=== PATIENT | male | born 1965 | race African-American/Black ===

== ENCOUNTER 2017-08-16 00:45 | Inpatient (IN) | payer OTHER ==
[2017-08-16] VITALS (7 sets, daily range): BP systolic 117–152; BP diastolic 64–89
[~2017-08-16] VITALS: Ht 185.4 cm; Wt 164.0 kg
[2017-08-16 02:26] LABS: BASOPHIL % 0.1 % (0-2); PLATELET COUNT 274 x10^3mcL (130-400)
[2017-08-16 02:34] LABS: RED CELL DISTRIBUTION WIDTH 14.6 % (11.5-14.5)
[2017-08-16] MEDS ORDERED: INVOKAMET1 TAB (02:43)
[2017-08-16] MEDS ORDERED: BENAZEPRIL HYDR40 M1 PO (02:44)
[2017-08-16] MEDS ORDERED: MOT800 PO (02:44)
[2017-08-16] MEDS ORDERED: HYDROCHLOROTHIA25 MG (02:45)
[2017-08-16] MEDS ORDERED: METFORMIN HYD1000 M2 PO (02:46)
[2017-08-16] MEDS ORDERED: GABAPENTIN600 M1 PO (02:46)
[2017-08-16] MEDS ORDERED: BUPROPION HCL150 MG PO (02:46)
[2017-08-16] MEDS ORDERED: LANTUS SOLOS100 U/M1 (02:47)
[2017-08-16 02:49] LABS: CALCIUM 9.4 mg/dL (8.5-10.1); CHLORIDE SERUM 91 mmol/L (98-107); CREATININE SERUM 1.3 mg/dL (0.7-1.3); GFR1 > 60 mL/min; GLUCOSE SERUM 355 mg/dL (74-106); POTASSIUM SERUM 4.1 mmol/L (3.5-5.1); SODIUM SERUM 130 mmol/L (136-145)
[2017-08-16 02:55] LABS: ALBUMIN 2.3 g/dL (3.4-5.0); ALKALINE PHOSPHATASE 133 U/L (46-116); ALT/SGPT 36 U/L (16-63); AST/SGOT 31 U/L (15-37); BILIRUBIN TOTAL 1.8 mg/dL (0.20-1.00); TOTAL PROTEIN, SERUM 7.8 g/dL (6.4-8.2)
[2017-08-16 04:46] LABS: MAGNESIUM 1.7 mg/dL (1.8-2.4); PHOSPHOROUS 3.7 mg/dL (2.5-4.9)
[2017-08-16 04:49] LABS: T3 TOTAL 0.78 ng/mL
[2017-08-16 04:50] LABS: CHOLESTEROL/HDL RATIO 4.9
[2017-08-16 04:54] LABS: FREE T4 1.65 ng/dL (0.76-1.46); FREE THYROXINE INDEX 3.6 ug/dL (1.4-4.5)
[2017-08-16 08:02] LABS: CALCIUM 8.8 mg/dL (8.5-10.1); CARBON DIOXIDE 29.8 mmol/L (21-32); CREATININE SERUM 1.6 mg/dL (0.7-1.3); MAGNESIUM 1.8 mg/dL (1.8-2.4); POTASSIUM SERUM 4.3 mmol/L (3.5-5.1)
[2017-08-16 08:03] LABS: PLATELET COUNT 278 x10^3mcL (130-400); RED CELL DISTRIBUTION WIDTH 14.5 % (11.5-14.5)
[2017-08-16 12:47] LABS: BAND NEUTROPHIL 3 % (0-10); BASOPHIL 0 % (0-2); MONOCYTE 5 % (0-7); SEGMENTED NEUTROPHILS 85 % (37-75)
[2017-08-16 12:48] LABS: PLATELET MORPHOLOGY LARGE PLATELET SEEN; rbc morphology (normal/abnorm) ABNORMAL (NORMAL)
[2017-08-16 15:20] LABS: UA SPECIFIC GRAVITY <=1.005 (1.005-1.035); microscopic required? YES; urine erythrocyte TRACE (NEGATIVE)
[2017-08-16 15:32] LABS: AMPHETAMINE QUAL UR NONE DETECTED (NEG <=1000)
[2017-08-16 17:38] LABS: IRON 15 ug/dL (65-170); TOTAL IRON BINDING CAPACITY 133 ug/dL (250-450)
[2017-08-16 17:55] LABS: RED BLOOD CELLS 5.21 M/mm3 (4.52-5.90)
[2017-08-17 05:45] VITALS: BP 134/74
[2017-08-17 07:13] LABS: CALCIUM 9.2 mg/dL (8.5-10.1); CARBON DIOXIDE 29.4 mmol/L (21-32); CREATININE SERUM 1.6 mg/dL (0.7-1.3); MAGNESIUM 2.1 mg/dL (1.8-2.4); PHOSPHOROUS 4.3 mg/dL (2.5-4.9); POTASSIUM SERUM 3.8 mmol/L (3.5-5.1)
[2017-08-17 07:43] LABS: PLATELET COUNT 325 x10^3mcL (130-400)
[2017-08-17 07:50] VITALS: BP 119/82
[2017-08-17 08:33] LABS: BASOPHIL % 0 % (0-2); RED CELL DISTRIBUTION WIDTH 14.7 % (11.5-14.5)
[2017-08-17 12:00] VITALS: BP 136/86
[2017-08-17 17:19] VITALS: BP 136/86
[2017-08-17 17:34] VITALS: BP 125/85
[2017-08-17 21:05] VITALS: BP 136/87
[2017-08-18 06:24] VITALS: BP 155/94
[2017-08-18 06:44] LABS: BASOPHIL % 0.4 % (0-2); CALCIUM 9.1 mg/dL (8.5-10.1); CARBON DIOXIDE 28.3 mmol/L (21-32); CHLORIDE SERUM 96 mmol/L (98-107); CREATININE SERUM 1.1 mg/dL (0.7-1.3); GFR1 > 60 mL/min; GLUCOSE SERUM 156 mg/dL (74-106); PHOSPHOROUS 3.8 mg/dL (2.5-4.9); PLATELET COUNT 338 x10^3mcL (130-400); POTASSIUM SERUM 3.7 mmol/L (3.5-5.1); SODIUM SERUM 134 mmol/L (136-145)
[2017-08-18 07:07] LABS: RED CELL DISTRIBUTION WIDTH 14.7 % (11.5-14.5)
[2017-08-18 10:40] VITALS: BP 117/94
[2017-08-18 13:20] VITALS: BP 140/86
[2017-08-18 17:39] VITALS: BP 131/105
[2017-08-18 20:36] VITALS: BP 129/72
[2017-08-19 05:58] VITALS: BP 129/70
[2017-08-19 07:25] LABS: CALCIUM 8.8 mg/dL (8.5-10.1); CARBON DIOXIDE 29.9 mmol/L (21-32); CHLORIDE SERUM 98 mmol/L (98-107); CREATININE SERUM 1.2 mg/dL (0.7-1.3); GFR1 > 60 mL/min; GLUCOSE SERUM 217 mg/dL (74-106); MAGNESIUM 2.1 mg/dL (1.8-2.4); PHOSPHOROUS 3.1 mg/dL (2.5-4.9); SODIUM SERUM 137 mmol/L (136-145)
[2017-08-19 07:53] LABS: BASOPHIL % 0.4 % (0-2); PLATELET COUNT 356 x10^3mcL (130-400)
[2017-08-19 07:54] LABS: RED CELL DISTRIBUTION WIDTH 15.2 % (11.5-14.5)
[2017-08-19 07:55] LABS: rbc morphology (normal/abnorm) ABNORMAL (NORMAL)
[2017-08-19 08:51] VITALS: BP 122/76
[2017-08-19 13:19] VITALS: BP 126/82
[2017-08-19 16:36] VITALS: BP 131/70
[2017-08-19 20:22] VITALS: BP 120/77
[2017-08-20 05:30] VITALS: BP 138/94
[2017-08-20 07:10] LABS: BASOPHIL % 0.6 % (0-2); PLATELET COUNT 375 x10^3mcL (130-400)
[2017-08-20 07:13] LABS: RED CELL DISTRIBUTION WIDTH 14.9 % (11.5-14.5)
[2017-08-20 07:57] LABS: CALCIUM 8.8 mg/dL (8.5-10.1); CARBON DIOXIDE 31.8 mmol/L (21-32); CHLORIDE SERUM 101 mmol/L (98-107); GFR1 > 60 mL/min; GLUCOSE SERUM 81 mg/dL (74-106); POTASSIUM SERUM 3.4 mmol/L (3.5-5.1); SODIUM SERUM 137 mmol/L (136-145)
[2017-08-20 09:01] VITALS: BP 130/87
[2017-08-20 17:10] VITALS: BP 146/91
[2017-08-21 05:04] VITALS: BP 156/98
[2017-08-21 08:09] LABS: CARBON DIOXIDE 35.2 mmol/L (21-32); CHLORIDE SERUM 100 mmol/L (98-107); GFR1 > 60 mL/min; GLUCOSE SERUM 81 mg/dL (74-106); MAGNESIUM 1.8 mg/dL (1.8-2.4); PHOSPHOROUS 3.6 mg/dL (2.5-4.9); POTASSIUM SERUM 3.5 mmol/L (3.5-5.1); SODIUM SERUM 141 mmol/L (136-145)
[2017-08-21 08:14] LABS: BASOPHIL % 0.4 % (0-2); PLATELET COUNT 410 x10^3mcL (130-400)
[2017-08-21 09:33] VITALS: BP 112/70
[2017-08-21 17:15] VITALS: BP 128/74
[2017-08-21 21:41] VITALS: BP 159/93
[2017-08-22 06:18] VITALS: BP 141/87
[2017-08-22 07:41] LABS: BASOPHIL % 0.6 % (0-2)
[2017-08-22 07:46] LABS: PLATELET COUNT 407 x10^3mcL (130-400); RED CELL DISTRIBUTION WIDTH 15.4 % (11.5-14.5)
[2017-08-22 08:04] LABS: CHLORIDE SERUM 103 mmol/L (98-107); GFR1 > 60 mL/min; GLUCOSE SERUM 153 mg/dL (74-106); MAGNESIUM 1.6 mg/dL (1.8-2.4); PHOSPHOROUS 3.1 mg/dL (2.5-4.9); POTASSIUM SERUM 4.1 mmol/L (3.5-5.1); SODIUM SERUM 141 mmol/L (136-145)
[2017-08-22 08:14] LABS: rbc morphology (normal/abnorm) ABNORMAL (NORMAL)
[2017-08-22 08:46] VITALS: BP 138/78
[2017-08-22 17:34] VITALS: BP 129/62
[2017-08-22 19:30] VITALS: BP 139/79
[2017-08-23 05:59] VITALS: BP 141/83
[2017-08-23 07:26] LABS: CALCIUM 9.2 mg/dL (8.5-10.1); CARBON DIOXIDE 30.6 mmol/L (21-32); CHLORIDE SERUM 102 mmol/L (98-107); GFR1 > 60 mL/min; GLUCOSE SERUM 107 mg/dL (74-106); MAGNESIUM 1.7 mg/dL (1.8-2.4); PHOSPHOROUS 3.5 mg/dL (2.5-4.9); POTASSIUM SERUM 4.1 mmol/L (3.5-5.1); SODIUM SERUM 141 mmol/L (136-145)
[2017-08-23 07:55] LABS: BASOPHIL % 0.5 % (0-2); PLATELET COUNT 380 x10^3mcL (130-400)
[2017-08-23 08:00] VITALS: BP 121/80
[2017-08-23 08:06] LABS: RED CELL DISTRIBUTION WIDTH 15.1 % (11.5-14.5)
[2017-08-23 17:40] VITALS: BP 134/84
[2017-08-23 20:45] VITALS: BP 150/81
[2017-08-24 05:59] VITALS: BP 154/91
[2017-08-24 06:20] LABS: BASOPHIL % 0.3 % (0-2)
[2017-08-24 06:24] LABS: CALCIUM 8.9 mg/dL (8.5-10.1); CARBON DIOXIDE 32.2 mmol/L (21-32); CHLORIDE SERUM 104 mmol/L (98-107); CREATININE SERUM 1.1 mg/dL (0.7-1.3); GFR1 > 60 mL/min; GLUCOSE SERUM 70 mg/dL (74-106); PHOSPHOROUS 4.1 mg/dL (2.5-4.9); POTASSIUM SERUM 3.7 mmol/L (3.5-5.1); SODIUM SERUM 141 mmol/L (136-145)
[2017-08-24 06:38] LABS: PLATELET COUNT 440 x10^3mcL (130-400); RED CELL DISTRIBUTION WIDTH 15.1 % (11.5-14.5)
[2017-08-24 08:40] VITALS: BP 134/87
[2017-08-24 16:47] VITALS: BP 150/90
[2017-08-24 22:07] VITALS: BP 140/68
[2017-08-25 05:44] VITALS: BP 133/67
[2017-08-25 07:30] LABS: BASOPHIL % 1.3 % (0-2)
[2017-08-25 07:31] LABS: PLATELET COUNT 413 x10^3mcL (130-400); RED CELL DISTRIBUTION WIDTH 15.6 % (11.5-14.5); rbc morphology (normal/abnorm) ABNORMAL (NORMAL)
[2017-08-25 08:15] LABS: CARBON DIOXIDE 32.9 mmol/L (21-32); CHLORIDE SERUM 104 mmol/L (98-107); CREATININE SERUM 1.1 mg/dL (0.7-1.3); GFR1 > 60 mL/min; GLUCOSE SERUM 80 mg/dL (74-106); MAGNESIUM 1.8 mg/dL (1.8-2.4); PHOSPHOROUS 4.5 mg/dL (2.5-4.9); POTASSIUM SERUM 4.1 mmol/L (3.5-5.1); SODIUM SERUM 141 mmol/L (136-145)
[2017-08-25 10:35] VITALS: BP 170/81
[2017-08-25 18:03] VITALS: BP 127/65
[2017-08-25 21:00] VITALS: BP 148/93
[2017-08-26 05:40] VITALS: BP 128/54
[2017-08-26 06:47] LABS: BASOPHIL % 0.6 % (0-2); PLATELET COUNT 383 x10^3mcL (130-400)
[2017-08-26 06:56] LABS: CALCIUM 8.7 mg/dL (8.5-10.1); CARBON DIOXIDE 31.5 mmol/L (21-32); CHLORIDE SERUM 101 mmol/L (98-107); CREATININE SERUM 1.1 mg/dL (0.7-1.3); GFR1 > 60 mL/min; GLUCOSE SERUM 114 mg/dL (74-106); MAGNESIUM 1.8 mg/dL (1.8-2.4); PHOSPHOROUS 3.1 mg/dL (2.5-4.9); POTASSIUM SERUM 4.1 mmol/L (3.5-5.1); SODIUM SERUM 139 mmol/L (136-145)
[2017-08-26 09:32] VITALS: BP 143/80
[2017-08-26 17:37] VITALS: BP 135/87
[2017-08-26 22:07] VITALS: BP 126/53
[2017-08-27 06:07] VITALS: BP 149/85
[2017-08-27 06:28] LABS: BASOPHIL % 0.4 % (0-2); PLATELET COUNT 362 x10^3mcL (130-400)
[2017-08-27 06:31] LABS: CALCIUM 8.8 mg/dL (8.5-10.1); CARBON DIOXIDE 32.5 mmol/L (21-32); CHLORIDE SERUM 101 mmol/L (98-107); CREATININE SERUM 1.3 mg/dL (0.7-1.3); GFR1 > 60 mL/min; GLUCOSE SERUM 108 mg/dL (74-106); MAGNESIUM 1.9 mg/dL (1.8-2.4); PHOSPHOROUS 3.8 mg/dL (2.5-4.9); POTASSIUM SERUM 4.3 mmol/L (3.5-5.1); SODIUM SERUM 139 mmol/L (136-145)
[2017-08-27 06:51] LABS: RED CELL DISTRIBUTION WIDTH 15.6 % (11.5-14.5)
[2017-08-27 06:52] LABS: rbc morphology (normal/abnorm) ABNORMAL (NORMAL)
[2017-08-27 08:57] VITALS: BP 147/66
[2017-08-27 18:43] VITALS: BP 130/62
[2017-08-27 19:15] VITALS: BP 154/96
[2017-08-28 05:43] VITALS: BP 152/92
[2017-08-28 07:10] LABS: BASOPHIL % 0.7 % (0-2); PLATELET COUNT 332 x10^3mcL (130-400)
[2017-08-28 07:20] LABS: CALCIUM 8.7 mg/dL (8.5-10.1); CHLORIDE SERUM 95 mmol/L (98-107); CREATININE SERUM 1.3 mg/dL (0.7-1.3); GFR1 > 60 mL/min; GLUCOSE SERUM 104 mg/dL (74-106); SODIUM SERUM 134 mmol/L (136-145)
[2017-08-28 07:42] LABS: RED CELL DISTRIBUTION WIDTH 15.4 % (11.5-14.5)
[2017-08-28 07:43] LABS: rbc morphology (normal/abnorm) ABNORMAL (NORMAL)
[2017-08-28 08:33] VITALS: BP 123/67
[2017-08-28 13:25] VITALS: BP 121/63
[2017-08-28 16:58] VITALS: BP 136/80
[2017-08-28 20:54] VITALS: BP 121/65
[2017-08-29 08:30] VITALS: BP 100/37
[2017-08-29 17:55] VITALS: BP 107/68
[2017-08-29 20:36] VITALS: BP 113/63
[2017-08-30 05:30] VITALS: BP 96/56
[2017-08-30 07:19] LABS: CALCIUM 8.5 mg/dL (8.5-10.1); CARBON DIOXIDE 29.9 mmol/L (21-32); CREATININE SERUM 1.4 mg/dL (0.7-1.3); POTASSIUM SERUM 4.1 mmol/L (3.5-5.1)
[2017-08-30 07:20] LABS: PLATELET COUNT 295 x10^3mcL (130-400)
[2017-08-30 08:30] VITALS: BP 113/68
[2017-08-30 08:37] VITALS: Ht 185.4 cm; Wt 164.0 kg
[2017-08-30 09:43] LABS: RED CELL DISTRIBUTION WIDTH 15.6 % (11.5-14.5)
[2017-08-30 18:38] VITALS: BP 111/71
[2017-08-30 21:25] VITALS: BP 134/74
[2017-08-31 05:24] VITALS: BP 102/56
[2017-08-31 07:22] LABS: PLATELET COUNT 252 x10^3mcL (130-400)
[2017-08-31 07:27] LABS: CALCIUM 8.4 mg/dL (8.5-10.1); CARBON DIOXIDE 30.4 mmol/L (21-32); CHLORIDE SERUM 97 mmol/L (98-107); CREATININE SERUM 1.2 mg/dL (0.7-1.3); GFR1 > 60 mL/min; GLUCOSE SERUM 102 mg/dL (74-106); MAGNESIUM 1.7 mg/dL (1.8-2.4); PHOSPHOROUS 3.1 mg/dL (2.5-4.9); POTASSIUM SERUM 4.1 mmol/L (3.5-5.1); SODIUM SERUM 134 mmol/L (136-145)
[2017-08-31 09:02] LABS: RED CELL DISTRIBUTION WIDTH 15.4 % (11.5-14.5)
[2017-08-31 09:08] LABS: BAND NEUTROPHIL 18 % (0-10); BASOPHIL 0 % (0-2); METAMYELOCTE 0 % (0-2); MONOCYTE 24 % (0-7); SEGMENTED NEUTROPHILS 24 % (37-75); rbc morphology (normal/abnorm) ABNORMAL (NORMAL)
[2017-08-31 09:09] LABS: PLATELET MORPHOLOGY LARGE PLATELET SEEN
[2017-08-31 09:55] VITALS: BP 97/46
[2017-08-31 15:55] VITALS: BP 148/93
[2017-08-31 21:07] VITALS: BP 100/50
[2017-09-01 05:56] LABS: BASOPHIL % 1.8 % (0-2); PLATELET COUNT 225 x10^3mcL (130-400)
[2017-09-01 06:06] VITALS: BP 126/86
[2017-09-01 06:15] LABS: CALCIUM 8.5 mg/dL (8.5-10.1); CARBON DIOXIDE 28.8 mmol/L (21-32); CHLORIDE SERUM 101 mmol/L (98-107); CREATININE SERUM 1.2 mg/dL (0.7-1.3); GFR1 > 60 mL/min; GLUCOSE SERUM 133 mg/dL (74-106); MAGNESIUM 2.1 mg/dL (1.8-2.4); PHOSPHOROUS 3.8 mg/dL (2.5-4.9); POTASSIUM SERUM 4.1 mmol/L (3.5-5.1); SODIUM SERUM 136 mmol/L (136-145)
[2017-09-01 06:22] LABS: RED CELL DISTRIBUTION WIDTH 15.6 % (11.5-14.5)
[2017-09-01 06:48] LABS: rbc morphology (normal/abnorm) ABNORMAL (NORMAL)
[2017-09-01 08:15] VITALS: BP 111/63
[2017-09-01 17:26] VITALS: BP 110/70
[2017-09-01 20:59] VITALS: BP 110/76
[2017-09-02 06:47] VITALS: BP 129/85
[2017-09-02 07:13] LABS: CALCIUM 8.7 mg/dL (8.5-10.1); CARBON DIOXIDE 29.2 mmol/L (21-32); CHLORIDE SERUM 104 mmol/L (98-107); CREATININE SERUM 1.2 mg/dL (0.7-1.3); GFR1 > 60 mL/min; GLUCOSE SERUM 102 mg/dL (74-106); POTASSIUM SERUM 4.2 mmol/L (3.5-5.1); SODIUM SERUM 138 mmol/L (136-145)
[2017-09-02 07:25] LABS: BASOPHIL % 0.9 % (0-2); PLATELET COUNT 212 x10^3mcL (130-400)
[2017-09-02 07:26] LABS: RED CELL DISTRIBUTION WIDTH 15.7 % (11.5-14.5)
[2017-09-02 07:30] LABS: rbc morphology (normal/abnorm) ABNORMAL (NORMAL)
[2017-09-02 08:48] VITALS: BP 109/73
[2017-09-02 16:48] VITALS: BP 140/69
[2017-09-02 21:53] VITALS: BP 154/71
[2017-09-03 05:21] VITALS: BP 110/58
[2017-09-03 06:02] LABS: CALCIUM 8.3 mg/dL (8.5-10.1); CARBON DIOXIDE 26.8 mmol/L (21-32); CHLORIDE SERUM 101 mmol/L (98-107); CREATININE SERUM 1.2 mg/dL (0.7-1.3); GFR1 > 60 mL/min; GLUCOSE SERUM 131 mg/dL (74-106); MAGNESIUM 1.7 mg/dL (1.8-2.4); PHOSPHOROUS 3.7 mg/dL (2.5-4.9); POTASSIUM SERUM 4.1 mmol/L (3.5-5.1); SODIUM SERUM 135 mmol/L (136-145)
[2017-09-03 07:02] LABS: BASOPHIL % 1.3 % (0-2); PLATELET COUNT 211 x10^3mcL (130-400)
[2017-09-03 07:16] LABS: RED CELL DISTRIBUTION WIDTH 15.7 % (11.5-14.5)
[2017-09-03 09:21] VITALS: BP 103/65
[2017-09-03] MEDS ORDERED: LEVEMIR100 U/M1 SC ×2 (15:13)
[2017-09-03] MEDS ORDERED: HUMULIN R100 U/1 M1 SC (15:13)
== END 2017-09-03 15:52 | DRG 853 ==
LOC: ED 00:45 → DU 03:25 → MU 03:25 → DU 04:00 → MU 08-19 17:29
PROVIDERS: Emergency Medicine; Family Medicine; Family Medicine Sports Medicine; Surgery
PROC: 0JBQ0ZZ Excision of Right Foot Subcutaneous Tissue and Fascia, Open Approach (ICD-10-PCS; 2017-08-16)
PROC: 0J9L0ZZ Drainage of Right Upper Leg Subcutaneous Tissue and Fascia, Open Approach (ICD-10-PCS; 2017-08-18)
PROC: 0JBL0ZZ Excision of Right Upper Leg Subcutaneous Tissue and Fascia, Open Approach (ICD-10-PCS; principal; 2017-08-22 08:00)
PROC: 0JBL0ZZ Excision of Right Upper Leg Subcutaneous Tissue and Fascia, Open Approach (ICD-10-PCS; 2017-08-25)
DX: A41.9 Sepsis, unspecified organism (principal); N17.0 Acute kidney failure with tubular necrosis; E43 Unspecified severe protein-calorie malnutrition; L02.214 Cutaneous abscess of groin; L02.611 Cutaneous abscess of right foot; E87.1 Hypo-osmolality and hyponatremia; L97.518 Non-pressure chronic ulcer of other part of right foot with other specified severity; Z68.43 Body mass index [BMI] 50.0-59.9, adult; L02.415 Cutaneous abscess of right lower limb; B95.62 Methicillin resistant Staphylococcus aureus infection as the cause of diseases classified elsewhere; I10 Essential (primary) hypertension; E11.65 Type 2 diabetes mellitus with hyperglycemia; F32.9 Major depressive disorder, single episode, unspecified; E11.621 Type 2 diabetes mellitus with foot ulcer; E11.42 Type 2 diabetes mellitus with diabetic polyneuropathy; R31.9 Hematuria, unspecified; K76.0 Fatty (change of) liver, not elsewhere classified; D50.9 Iron deficiency anemia, unspecified; E83.39 Other disorders of phosphorus metabolism; E87.8 Other disorders of electrolyte and fluid balance, not elsewhere classified; E83.42 Hypomagnesemia; B35.1 Tinea unguium; E83.51 Hypocalcemia
CPT/HCPCS: 82962; 83880; 84439; 87491; 87591; 94150; C1729; C1758; J0690; J0696; J1644; J1815; J1885; J1956; J2001; J2250; J2270; J2405; J2543; J2704; J3010; J3370; J3475; J3490; J7030; J7042; J7050; Q0092; Q9967

== ENCOUNTER 2018-12-25 14:42 | Inpatient (IN) | payer OTHER, MEDICAID ==
[~2018-12-25] VITALS: Ht 182.9 cm; Wt 173.7 kg
[~2018-12-25 14:42] MED LIST: BENAZEPRIL HYDR40 M1 PO; BUPROPION HCL150 MG PO; GABAPENTIN600 M1 PO; HUMULIN R100 U/1 M1 SC; HYDROCHLOROTHIA25 MG; INVOKAMET1 TAB; LANTUS SOLOS100 U/M1; LEVEMIR100 U/M1 SC; METFORMIN HYD1000 M2 PO; MOT800 PO
[2018-12-25 15:06] VITALS: Ht 182.9 cm; Wt 173.7 kg
--- NOTE | 2018-12-25 16:01 | NUR ---
PT PRESENTED TO THE ED WITH C/C OF LEFT FOOT PAIN, LOCALIZED TO HIS HEEL. PT REPORTS HAVING A BLISTER X4 DAYS, THAT HE "TORE OFF" AND SOAKED. AFTER SOAKING, PT REPORTS RIPPING OFF SKIN THE SIZE OF A "GOLF BALL". PT HAS A HX OF DIABETES, BUT IS NON-COMPLIANT WITH INSULIN X2-3 MONTHS, PER PT. PT HAS A HX OF MRSA AND IS CONCERNED THAT HIS FOOT COULD BE INFECTED WITH MRSA, REPORTS "PUS" COMING OUT OF WOUND ON HEEL AND PAIN IN HIS FOOT AND CALF. SWELLING NOTED TO LEFT CALF, WITH 2+PITTING EDEMA. PT IS AWAKE, SITTING ON EDGE OF [place], AAOX4, RESP E/U, NAD NOTED, AWAITING MSE.
--- NOTE | 2018-12-25 17:40 | NUR ---
DR FARMER AT BEDSIDE FOR MSE.
--- NOTE | 2018-12-25 17:49 | NUR ---
REPORT RECEIVED FROM NICOLÁS GREENBERG.
--- NOTE | 2018-12-25 17:51 | NUR ---
PT MOVED TO BED 7, REPORT GIVEN TO NICOLÁS ALEJANDRA.
--- NOTE | 2018-12-25 18:22 | NUR ---
PHARMACY CALLED ME THAT THEY WILL SEND THE VANCOMYCIN WHEN LABS ARE RESULTED.
[2018-12-25 18:29] LABS: BASOPHIL % 0.7 % (0-2); PLATELET COUNT 249 x10^3mcL (130-400)
[2018-12-25 18:30] LABS: RED CELL DISTRIBUTION WIDTH 14.7 % (11.5-14.5)
--- NOTE | 2018-12-25 18:35 | NUR ---
XRAY AT BEDSIDE,
[2018-12-25 18:40] LABS: CALCIUM 8.4 mg/dL (8.5-10.1); CARBON DIOXIDE 33.4 mmol/L (21-32); CHLORIDE SERUM 99 mmol/L (98-107); CREATININE SERUM 1.1 mg/dL (0.7-1.3); GFR1 > 60 mL/min; GLUCOSE SERUM 217 mg/dL (74-106); POTASSIUM SERUM 3.9 mmol/L (3.5-5.1); SODIUM SERUM 137 mmol/L (136-145)
[2018-12-25 18:41] LABS: C REACTIVE PROTEIN 3.7 mg/dL (<=0.9)
[2018-12-25] MEDS ORDERED: ASPIR-TRIN325 MG PO (18:56)
[2018-12-25] MEDS ORDERED: GLIMEPIRIDE2 M1 PO (18:59)
[2018-12-25] MEDS ORDERED: BASAGLAR K100 UNIT/1 SQ (19:00)
[2018-12-25] MEDS ORDERED: GLUCOPHAGE1000 MG PO (19:00)
--- NOTE | 2018-12-25 19:15 | NUR ---
REPORT GIVEN TO NICOLÁS SANTACRUZ TO ASSUME CARE OF PT.
--- NOTE | 2018-12-25 19:23 | NUR ---
PT LAYING ON GURNEY IN POSITION OF COMFORT. NO S/S OF DISTRESS. RESP E/U. WILL CONTINUE TO MONITOR.
--- NOTE | 2018-12-25 19:26 | NUR ---
PT MEDICATED PER ORDED. PT VERBALIZED UNDERSTANDING OF MEDICATION TEACHING. SEE EMAR FOR DETAILS.
--- NOTE | 2018-12-25 19:58 | NUR ---
REPORT GIVEN TO NICOLÁS CANAS TO ASSUME CARE OF PT.
--- NOTE | 2018-12-25 20:05 | NUR ---
PHOTO PLACED IN CHART OF PTS LEFT HEAL WOUND. PHOTO TAKEN BY NICOLÁS BRANTLEY. NICOLÁS COVARRUBIAS MADE AWARE OF FOOT WOUND.
--- NOTE | 2018-12-25 20:19 | NUR ---
PT TRANSFERRED TO TELE FLOOR ACCOMPANIED BY NURSE AND EMT. NO S/S OF DISTRESS. RESP E/U. IV SITE PATENT, PT DENIES PAIN OR DISCOMFORT TO SITE. NURSE AWARE OF INFUSION CONTINUEING TO RUN ON TRANSFER.
--- NOTE | 2018-12-25 20:21 | NUR ---
RECEIVED PT FROM ED VIA [place], CAME IN DUE TO LEFT FOOT PAIN. AAOX4. DENIES HEADACHE/DIZZINESS. ABLE TO FOLLOW COMMANDS. NO SOB NOTED, LUNG SOUNDS CTA. DENIES CHEST PAIN/PRESSURE, SR ON THE MONITOR. DENIES ABDOMINAL DISCOMFORT. BOWEL SOUNDS ACTIVE. W/ OPEN WOUND ON THE LEFT HEEL, MILD FOUL ODOR NOTED, NO DRAINAGE NOTED. C/O 5/10 BURNING PAIN ON THE LEFT FOOT. W/ +2 EDEMA ON BLE AND DECREASED SENSATION ON BLE. IV SITE ON THE LFA IS PATENT AND INTACT. SIDE RAILS UPX2. CALL LIGHT ON REACH. ENDORSED TO PRIMARY NURSE BERNICE FOR CONTINUITY OF CARE
[2018-12-25 20:45] VITALS: BP 146/86
[2018-12-25 20:46] LABS: CHOLESTEROL/HDL RATIO 1.5
--- NOTE | 2018-12-25 21:27 | NUR ---
PT C/O LEFT FT PAIN 11/25. MEDICATED NORCO 7/325 MG PO ORDERED. WILL CONTINUE TO MONITOR.
--- NOTE | 2018-12-26 05:08 | NUR ---
PT AWAKE. NO ACUTE RESPIRATORY DISTRESS NOTED. NO C/O PAIN AT THIS TIME. WOUND CARE DONE TO LEFT HEEL.BED IN LOWEST POSITION,CALL LIGHT WITHIN REACH. WILL CONTINUE TO MONITOR.
[2018-12-26 06:13] VITALS: BP 146/82
[2018-12-26 06:27] LABS: BASOPHIL % 0.4 % (0-2); PLATELET COUNT 241 x10^3mcL (130-400)
[2018-12-26 06:51] LABS: CALCIUM 8.1 mg/dL (8.5-10.1); CARBON DIOXIDE 31.7 mmol/L (21-32); CHLORIDE SERUM 100 mmol/L (98-107); GFR1 > 60 mL/min; GLUCOSE SERUM 242 mg/dL (74-106); SODIUM SERUM 138 mmol/L (136-145)
[2018-12-26 07:00] LABS: RED CELL DISTRIBUTION WIDTH 14.6 % (11.5-14.5)
--- NOTE | 2018-12-26 07:19 | NUR ---
CARE ENDORSED TO DAY NURSE AN.
--- NOTE | 2018-12-26 07:30 | NUR ---
RECEIVED PATEINT RESTING IN BED, NO ACUTE DISTRESS NOTED. DENIES SOB, PATIENT ON ROOM AIR. PATIENT C/O OF PAIN 1-05/28 TO LLE, STATES PAIN IS TOLERABLE AT THIS TIME. EDUCATED PATIENT ON PAIN MANAGEMENT. TELE MONITOR IN PLACE, DENIES CHEST PAIN. EDUCATED PATIENT TO MAINTAIN BLE ELEVATED TO REDUCE EDEMA, PATIENT VERBALIZES UNDERSTANDING. DRESSING TO LLE CDI & INTACT, NO DRAINAGED OR FOUL ODOR NOTED. NS IV INFUSING TO LFA AT 100ML/HR, IV SITE CDI & PATENT, NO S/S OF INFILTRATION. CALL LIGHT WITHIN REACH, BED IN LOW POSITION WILL CONTINUE TO MONITOR.
[2018-12-26 10:16] VITALS: BP 129/86
--- NOTE | 2018-12-26 11:45 | NUR ---
WOUND CARE EVALUATION NOTE: REASON FOR EVALUATION: LEFT HEEL DIABETIC ULCER SKIN ASSESSMENT DONE WITH THIS 53 Y/O MALE PT ADMITTED TO [facility] – [place] WITH LEFT FOOT PAIN AND CHRONIC DIABETIC ULCER WITH LEFT HALUX PARTIAL AMPUTATION A YEAR AGO. ALL ABOVE INFORMATION OBTAINED FROM PT. PT IS AWAKE, FOLLOW DIRECTIONS, SKIN IS WARM AND DRY, BLE NO HAIR GROWTH, LLE +1 EDEMA DORSAL PEDAL PULSES PRESENT AND NORMAL. CAPILLARY REFILLED < 2 SEC.X 9 TOES. PLAN OF CARE DISCUSSED WITH PRIMARY RN AND PT. PT VERBALIZES UNDERSTANDING. INTEGUMENTARY: -LLE SWELLING, WARM TO TOUCH C/O PAIN 5/10, NO OPEN ACTIVE WOUND -DIABETIC ULCER TO LEFT HEEL PARTIAL THICKNESS SKIN LOSS, 6X5X0.1 CM, WOUND BED LIGHT BROWN THIN SCAR,CLEAN AND MOIST,NO ODOR,SLIGHTLY HYPERKERATOTIC BORDER OBSERVED WITH PERIWOUND SKIN SOFT SWELLING TISSUE AND HYPER ERYTHEMA, PAIN 2/10 RECOMMENDATIONS: -PENDING PODIATRY CONSULT -CLEANSE LEFT HEEL WITH NS, APPLY THERAHONEY DRESSING SHEET COVER WITH DRY DRESSING AND SECURE WITH TAPE Q 72 HR AND PRN IF SOILING, STARTING 12/26/2018 -OFFLOAD BILATERAL HEELS BY PLACING PILLOWS UNDER CALVES UNLESS OTHERWISE CONTRAINDICATED -PRESSURE REDISTUBUTION SURFACE THERAPY -CONTINUE TO FOLLOW RD RECOMMENDATIONS ALL ABOVE RECOMMENDATIONS DISCUSSED WITH PRIMARY RN PLEASE CONTACT WOUND CARE NURSE FOR ANY QUESTION AND CHANGE OF WOUND CONDITION.
[2018-12-26 12:11] VITALS: BP 157/91
--- NOTE | 2018-12-26 12:45 | NUR ---
PATIENT WAS C/O MODERATE PAIN TO LEFT HEEL 08/25, MEDICATED PATIENT WITH NORCO PER PROTOCOL (SEE EMAR). EDUCATED PATIENT ON PAIN MANAGEMENT. CALL LIGHT WITHIN REACH, BED IN LOW POSITION, WILL CONTINUE TO MONITOR.
--- NOTE | 2018-12-26 14:24 | NUR ---
PATIENT IS SITTING UP IN BED, WATCHING TV. NO ACUTE DISTRESS NOTED, PATIENT ON ROOM AIR. PATIENT DENIES PAIN. CALL LIGHT WITHIN REACH, BED IN LOW POSITION, WILL CONTINUE TO MONITOR.
[2018-12-26 14:42] LABS: microscopic required? YES; urine erythrocyte TRACE (NEGATIVE)
[2018-12-26 14:52] LABS: AMPHETAMINE QUAL UR NONE DETECTED (See below)
--- NOTE | 2018-12-26 15:50 | NUR ---
IV TO LFA BECAME INFILTRATED, IV REMOVED, CATH INTACT. NEW IV INSERTED TO RIGHT HAND 20G, ATTEMPTED X2. IV SITE CDI& FLUSHES WELL WITH 10MLS.
[2018-12-26 17:14] VITALS: BP 147/78
--- NOTE | 2018-12-26 18:03 | NUR ---
PATIENT RESTING IN BED, NO ACUTE DISTRESS NOTED. PATIENT DENIES PAIN. DRESSING TO LEFT FOOT CDI, NO DRAINAGE NOTED. NS IV INFUSING TO RIGHT HAND AT 100ML/HR, IV SITE CDI&PATENT, NO S/S OF INFILTRATION. CALL LIGHT WITHIN REACH, BED IN LOW POSITION, WILL CONTINUE TO MONITOR FOR CHANGES & ENDORSE REPORT TO NIGHT NURSE.
--- NOTE | 2018-12-26 19:25 | NUR ---
PT RESTING IN BED WITH NO ACUTE DISTRESS AT THIS TIME, ASSESSMENT PERFORMED AT THIS TIME, PT IS A/OX4 WITH NO ACUTE DISTRESS NOTED AT THIS TIME, PT DENIES HERNANDEZ OR DIZZINESS, PT DENIES SOB OR CHEST PAIN AT THIS TIME. SAFETY PRECAUTIONS IN PLACE, WILL CONTINUE TO MONITOR
--- NOTE | 2018-12-26 19:30 | NUR ---
DR ABEL IN PATIENTS ROOM TO PERFORM DEBREDMENT OF LEFT FOOT WOUND, CONSENT IN CHART.
--- NOTE | 2018-12-26 20:45 | NUR ---
US TECH IN ROOM PERFORMING ARTERIAL ULTRA SOUND.
--- NOTE | 2018-12-26 21:02 | NUR ---
PT REPORTS MODERATE PAIN 5/10, ADMINISTERED NORCO PRN PER ORDER
[2018-12-26 21:27] VITALS: BP 126/86
--- NOTE | 2018-12-26 23:03 | NUR ---
PT RESTING IN BED WITH NO ACUTE DISTRESS NOTED AT THIS TIME, ALL NEEDS ATTENDED TO, SAFETY PRECAUTIONS IN PLACE, WILL CONTIUE TO MONITOR
--- NOTE | 2018-12-27 02:04 | NUR ---
PT IS RESTING COMFORTABLY IN BED WITH NO ACUTE DISTRESS, PT IS WASILY AROUSABLE TO VERBAL STIMULI, PT DENIES PAIN OR SOB, ALL NEEDS ATTENDED TO, SAFETY PRECAUTIONS IN PLACE, WILL CONTINUE TO MONITOR AND ENDORSE CARE
--- NOTE | 2018-12-27 05:10 | NUR ---
PT RESTED THROUGH THE NIGHT WITH NO ACUTE DISTRESS NOTED, EXCISIONAL DEBRIDEMENT WAS PERFORMED BY DR MENDOZA IN BEGGINING OF SHIFT, PT TOLERATED WELL AND HAD MINIMAL PAIN NEW ORDERS WERE PUT IN FOR COMPRESSION BOOTS AND ELEVATION OF LEG AND ORDERS WERE IN PLACE, PT DENIED PAIN OR SOB THROUGH EVENING, DRESSING WAS CHANGED BY PODIATRY. SAFETY PRECAUTIONS WERE MAINTAINED ALL NEEDS ATTENDED TO WILL CONTIUE TO MONITOR AND ENDORSE CARE
[2018-12-27 05:39] VITALS: BP 132/80
--- NOTE | 2018-12-27 07:48 | NUR ---
RECEIVED PATIENT FROM NICOLÁS RENTERIA. PATIENT IN BED, NO COMPLAINTS OF PAIN. DISCUSSED PLAN OF CARE TODAY W MEDICATIONS AND ANTIBIOTICS. PATIENT AGREES, WILL AWAIT USED CAR SALES SUPERVISOR YARI TO SPEAK WITH PATIENT TODAY. CALL LIGHT IN REACH AT THIS TIME.
[2018-12-27 08:03] LABS: CALCIUM 8.7 mg/dL (8.5-10.1); CARBON DIOXIDE 35.2 mmol/L (21-32); CHLORIDE SERUM 101 mmol/L (98-107); CREATININE SERUM 1.1 mg/dL (0.7-1.3); GFR1 > 60 mL/min; GLUCOSE SERUM 242 mg/dL (74-106); POTASSIUM SERUM 4.3 mmol/L (3.5-5.1); SODIUM SERUM 139 mmol/L (136-145)
[2018-12-27 08:07] VITALS: BP 148/95
[2018-12-27 08:08] LABS: BASOPHIL % 0.2 % (0-2); PLATELET COUNT 254 x10^3mcL (130-400)
[2018-12-27 08:22] LABS: RED CELL DISTRIBUTION WIDTH 14.8 % (11.5-14.5)
[2018-12-27 12:25] VITALS: BP 139/75
[2018-12-27 16:04] VITALS: BP 150/89
--- NOTE | 2018-12-27 17:30 | NUR ---
PATIENT IN BED AT THIS TIME. MILD COMPLAINTS OF BILATERAL CALF PAIN, REFUSES PRN PAIN MEDICATIONS. NO FURTHER COMPLAINTS AT THIS TIME. PATIENT ABLE TO WORK W DEVIN BOLAND TO TRAIN FOR CRUTCH USAGE. CALL LIGHT IN REACH AT THIS TIME.
--- NOTE | 2018-12-27 18:34 | NUR ---
PATIENT IN BED, NO COMPLAINTS AT THIS TIME. WILL CONTINUE IV ABX AND WILL ENDORSE TO ONCOMING NURSE ABOUT PT AND POSSIBLE SNF W PT PLACEMENT. CALL LIGHT IN REACH.
--- NOTE | 2018-12-27 19:05 | NUR ---
RECEIVED PT SITTING UP IN BED, NO ACUTE DISTRESS OBSEREVED. S/P EXCISIONAL DEBRIDEMENT OF L HEEL YESTERDAY 12/26/18. C/O 06/25 PAIN TO LLE. LLE ELEVATED ONTO PILLOW, PT REFUSING OFF LOAD BOOTS AT THIS TIME, PT EDUCATED ON NEED AND IMPORTANCE. DRESSING CHANGE EARLIER TODAY 12/27/18 PER PODIATRY. DRESSING IN PLACE, CDI. NWB TO LLE, CRUTCHES AT BEDSIDE AND WITHIN REACH. AA/OX4, ABLE TO MAKE NEEDS KNOWN. NSR TO TELE #4, NO CP. WEAK PEDAL PULSES. BREATHING ON RA, EVEN AND UNLABORED, NO SOB OR DYSPNEA OBSERVED. ABD ROUND AND SOFT, NON TENDER, NO N/V/D. FREELY VOIDS URINE WITH BRP, URINAL AT BEDSIDE AND WITHIN REACH. IV TO RH IN PLACE, DRY, PATENT, INTACT AND INFUSING IVF WELL, NO S&S PHLEBITIS OR INFILTRATION NOTED. COMFORT AND SAFETY MEASURES IN PLACE. ALL NEEDS ASSESSED AND ATTENDED TO. CALL LIGHT WITHIN REACH. WILL CONTINUE TO MONITOR
[2018-12-27 20:47] VITALS: BP 146/61
[2018-12-28 05:47] VITALS: BP 160/89
[2018-12-28 06:01] LABS: BASOPHIL % 0.4 % (0-2); PLATELET COUNT 249 x10^3mcL (130-400)
[2018-12-28 06:16] LABS: RED CELL DISTRIBUTION WIDTH 14.8 % (11.5-14.5)
--- NOTE | 2018-12-28 06:34 | NUR ---
NO SIGNIFICANT CHANGES TO REPORT, PT COMPLIED WITH NURSING CARE THROUGHOUT THE SHIFT WITH NO ACUTE EVENTS OVER NIGHT. NO ACUTE DISTRESS OBSERVED AT THIS TIME, PT SITTING UP IN BED AND WATCHING IPAD, DENIES PAIN OR DISCOMFORT AT THIS TIME. COMFORT AND SAFETY MEASURES MAINTAINED. ALL NEEDS ASSESSED AND ATTENDED TO. CALL LIGHT WITHIN REACH. WILL CONTINUE TO MONITOR AND ENDORSE CARE TO DAY SHIFT NURSE
[2018-12-28 06:35] LABS: CALCIUM 9.2 mg/dL (8.5-10.1); CARBON DIOXIDE 35.3 mmol/L (21-32); CHLORIDE SERUM 100 mmol/L (98-107); GFR1 > 60 mL/min; GLUCOSE SERUM 209 mg/dL (74-106); POTASSIUM SERUM 4.7 mmol/L (3.5-5.1); SODIUM SERUM 140 mmol/L (136-145)
--- NOTE | 2018-12-28 07:25 | NUR ---
RECEIVED PT IN NO ACUTE DISTRESS. RESTING IN BED. AAOX4. RESP EVEN AND UNLABORED ON RA. IVF INFUSING, NO REDNESS OR SWELLING TO R HAND IV SITE. DRESSING TO LEFT FOOT C/D/I WITH OFFLOAD BOOT. PT REPORTS 2/10 L FOOT PAIN, TOLERABLE. BED IN LOW POSITION, CALL LIGHT WITHIN REACH. WILL CONTINUE TO MONITOR.
[2018-12-28 08:46] VITALS: BP 141/82
[2018-12-28 09:54] VITALS: BP 141/89
[2018-12-28] MEDS ORDERED: LEVAQUIN750 MG PO (10:13)
--- NOTE | 2018-12-28 12:42 | NUR ---
PT RESTING IN BED WATCHING ON HIS IPAD. NO ACUTE DISTRESS. AAOX4. RESP EVEN AND UNLABORED ON RA. C/O MILD L FOOT PAIN 2/10, TOLERABLE. DRESSING TO L FOOT C/D/I. OFFLOAD BOOT IN PLACE. IVF INFUSING, NO REDNESS OR SWELLING. CALL LIGHT WITHIN REACH. WILL CONTINUE TO MONITOR.
[2018-12-28 13:01] VITALS: BP 151/82
[2018-12-28 13:38] VITALS: BP 151/82
--- NOTE | 2018-12-28 14:09 | NUR ---
1. Recommend continuing [facility] diet. 2. Diabetic diet education was provided.
--- NOTE | 2018-12-28 14:09 | NUR ---
Initial Nutrition Assessment: / KEO HERNANDES IA HR Dx: Diabetic foot ulcer with cellulitis PMHx: DM, HTN and MRSA abscess on the thigh PSHx: Appendectomy, Cholecystectomy, Hernia Repair, Proximal left great toe phalangeal head amputation Labs: BG 209H, A1C 10.4H Meds: Colace, D 50%, humulin, lantus, norco, vancomycin, Zofran, zosyn, heparin Diet: CCHO PO Intake: (12/27) 100% all meals, (12/26) 100% all meals Ht: 182.88 cm (72") Wt: 173.7 kg (382#) BMI: 51.9 kg/m2 Bed scale: 173.8 kg IBW: 178# (81 kg) %IBW: 214 UBW: 382# Age: 53/M Food Allergies: Lactose Skin: Open wound to L heel John: 20 Edema: none GI: Last BM: 12/26 Per H&P, Pt is a 53 year old male with past medical history of DM, HTN and MRSA abscess on the thigh (August 2017) who presented to the ER from home with complaints of left foot pain for ~3wks. RDN Visit (12/28): Patient was alert and oriented and said that he ate all of his breakfast this morning. Per FURNACE COMBINATION ANALYST Michael pt is to be D/C today. Problem with: N/V/D/C: none Problems with: Chewing/Swallowing: none Current appetite: good Recent wt change: none %wt change: n/a Vitamin/Supplement use: none Special diet at home: regular, tries to cut off sugar Physical activity: sedentary Nutrition education given: Diabetes diet education was provided using [place] handout on 'Type 2 Diabetes Nutrition Therapy'. Concepts like high fiber diet, label reading, types of carbohydrates and portion control were discussed. Patient verbalized understanding and did not have any questions at this time. Food-drug interactions: Colace- high fiber w/8411-5643 ml fluids Education given: n/a Estimated Nutritional Needs Based on adjusted body weight 104 kg Energy: 1759-3544 kcal/d (20-25 kcal/kg) Protein: 104-124 g/d (1.0-1.2 g/kg/ IBW)- preserve LBM Fluid: 4728-0246 ml/d (1 ml/kcal) or per doctor Nutrition Diagnosis 1. Food and nutrition related knowledge deficit related to no previous nutrition education as evidenced by patient not following diabetic diet at home. Intervention 1. Recommend continuing [facility] diet. 2. Diabetic diet education was provided. Monitor/Evaluate Goal: PO intake at least 75% of estimated needs Monitor: PO intake, Labs, GI function F/U in 7 days as low risk 01/04
--- NOTE | 2018-12-28 14:27 | NUR ---
PHYSICAL THERAPY DAILY NOTES CO-SIGN All documentation done by the Campground Manager for 12/28/18 has been reviewed. I agree with the documentation. Reviewed/Co-Signed by: Torie Hughes PT Documentation Done by: DEANGELO WILKINS PTA
--- NOTE | 2018-12-28 16:05 | NUR ---
PT DISCHARGED TO HOME WITH HOME HEALTH IN NO ACUTE DISTRESS. AWAKE, ALERT, AND ORIENTED. VSS. TRANSPORTED VIA WHEELCHAIR. RX GIVEN. DISCHARGE EDUCATION PROVIDED, PT VERBALIZED UNDERSTANDING. INSTRUCTED PT TO FOLLOW UP WITH PCP AND VIRTUAL RECRUITER. IV DC'D WITH CATHETER INTACT. TELE REMOVED. PT WEARING OFFLOAD BOOTS TO LLE, DRESSING TO LEFT FOOT C/D/I, CHANGED THIS AM BY PODIATRY. PT WITH HIS CRUTCHES. TAISHA BERTRAND ACCOMPANIED PT TO [facility].
== END 2018-12-28 16:08 | disposition home health service (06) | DRG 603 ==
LOC: ED 14:42 → DU 19:19 → MU 19:19 → DU 20:21
PROVIDERS: Emergency Medicine; Internal Medicine; ADMIT Internal Medicine
PROC: 0HBNXZZ Excision of Left Foot Skin, External Approach (ICD-10-PCS; principal; 2018-12-26)
DX: L03.116 Cellulitis of left lower limb (principal); L97.429 Non-pressure chronic ulcer of left heel and midfoot with unspecified severity; Z68.43 Body mass index [BMI] 50.0-59.9, adult; E11.621 Type 2 diabetes mellitus with foot ulcer; E11.65 Type 2 diabetes mellitus with hyperglycemia; T38.3X6A Underdosing of insulin and oral hypoglycemic [antidiabetic] drugs, initial encounter; E11.40 Type 2 diabetes mellitus with diabetic neuropathy, unspecified; I10 Essential (primary) hypertension; F32.9 Major depressive disorder, single episode, unspecified; E66.01 Morbid (severe) obesity due to excess calories; Z89.412 Acquired absence of left great toe; Z86.14 Personal history of Methicillin resistant Staphylococcus aureus infection; Z79.84 Long term (current) use of oral hypoglycemic drugs; Z79.82 Long term (current) use of aspirin; Z79.4 Long term (current) use of insulin; Z91.120 Patient's intentional underdosing of medication regimen due to financial hardship; Y92.009 Unspecified place in unspecified non-institutional (private) residence as the place of occurrence of the external cause
CPT/HCPCS: 82962; 97116-GP; G0378; J0696; J1644; J1815; J2543; J3370; J7030; J7060; Q0092